=== PATIENT | male | born 1960 | race Caucasian/White ===

== ENCOUNTER 2018-03-28 07:29 | Observation (INO) | payer OTHER ==
[2018-03-28] VITALS (7 sets, daily range): BP systolic 119–128; BP diastolic 76–85; PULSE 60–87; RESP 16–20; TEMP 97.6–98; O2SAT 97–100
[~2018-03-28] VITALS: Ht 172.7 cm; Wt 75.0 kg
[~2018-03-28 07:29] MED LIST: OXYC-360 PO; PROC10TA4 PO; TAMS0.4C67 PO
[2018-03-28] MEDS ORDERED: ALPR.5 PO (07:40)
[2018-03-28] MEDS ORDERED: SODIUM CHLOR 0.9% 1000 ML INJ 1,000 ML IV ONE (07:45)
[2018-03-28] MEDS ORDERED: SODIUM CHLORIDE 0.9% FLUSH 10 ML FLUSH IVF PRN (07:45)
--- NOTE | 2018-03-28 08:06 | PD ---
HPI Chief Complaint: Chest Pain Time Seen by Provider: 07:35 Travel History International Travel<30 days: No Contact w/Intl Traveler<30days: No Traveled to known affect area: No History of Present Illness HPI 57-year-old man with a history of anxiety presents emerged from quitting of chest pain. He states that he started feeling unwell yesterday when he started perseverates that he has been under "a lot of stress and pressure". States this morning when he woke up he was still nauseous, felt dizzy and unwell, and then went to work. While at work he started getting crushing mid chest pain with left arm tingling. Denies ever having had similar symptoms. He does have a history of anxiety takes Xanax each morning. Denies ever having a chest pain with exam anxiety in the past. States he had a stress test in the remote past. Review of our records shows stress without definite ischemia back in 2011. No other medical problems. He otherwise had been feeling generally well and healthy. Patient called EMS, in route with EMS was given 4 mg morphine, 2 nitro, 4 baby aspirin. EMS reports she looked pale and diaphoretic on scene. History Past Medical History Narrative Medical Anxiety Tetanus Vaccination: > 5 Years Influenza Vaccination: No Social History Alcohol Use: Yes (RARELY) Tobacco Use: Yes (5 CIGARETTES DAILY) Allergies-Medications (Allergen,Severity, Reaction): Coded Allergies: No Known Allergies (Unverified Adverse Reaction, Unknown, 03/28/18) Reported Meds & Prescriptions Reported Meds & Active Scripts Active Reported Xanax (Alprazolam) 0.5 Mg Tab 0.5 Mg PO BID PRN Review of Systems Except as stated in HPI: all other systems reviewed are Neg Physical Exam Narrative GENERAL: Well-appearing 57-year-old man, little bit pale, in no acute distress. SKIN: Focused skin assessment a little bit clammy. No rash. HEAD: Atraumatic. Normocephalic. EYES: Pupils equal and round. No scleral icterus. No injection or drainage. ENT: No nasal bleeding or discharge. Mucous membranes pink and moist. NECK: Trachea midline. No JVD. CARDIOVASCULAR: Regular rate and rhythm. No murmur appreciated. RESPIRATORY: No accessory muscle use. Clear to auscultation. Breath sounds equal bilaterally. GASTROINTESTINAL: Abdomen soft, non-tender, nondistended. Hepatic and splenic margins not palpable. MUSCULOSKELETAL: No obvious deformities. No clubbing. No cyanosis. No edema. NEUROLOGICAL: Awake and alert. No obvious cranial nerve deficits. Motor grossly within normal limits. Normal speech. PSYCHIATRIC: Appropriate mood and affect; insight and judgment normal. Data Data Last Documented VS Vital Signs Date Time Temp Pulse Resp B/P (MAP) Pulse Ox O2 Delivery O2 Flow Rate FiO2 03/28/18 09:05 81 16 125/84 (98) 100 Nasal Cannula 2.00 03/28/18 07:30 98.0 Orders Orders Electrocardiogram (03/28/18 07:36) Complete Blood Count With Diff (03/28/18 07:36) Comprehensive Metabolic Panel (03/28/18 07:36) D-Dimer (03/28/18 07:36) Magnesium (Mg) (03/28/18 07:36) Prothrombin Time / Inr (Pt) (03/28/18 07:36) Act Partial Throm Time (Ptt) (03/28/18 07:36) Troponin I (03/28/18 07:36) Lipase (03/28/18 07:36) Ecg Monitoring (03/28/18 07:36) Iv Access Insert/Monitor (03/28/18 07:36) Oximetry (03/28/18 07:36) Oxygen Administration (03/28/18 07:36) Sodium Chloride 0.9% Flush (Ns Flush) (03/28/18 07:45) Chest, Pa & Lat (03/28/18 07:36) Sodium Chlor 0.9% 1000 Ml Inj (Ns 1000 M (03/28/18 07:45) Acetaminophen (Tylenol) (03/28/18 09:00) Labs Laboratory Tests Test 03/28/18 07:45 White Blood Count 6.7 TH/MM3 Red Blood Count 4.99 MIL/MM3 Hemoglobin 15.5 GM/DL Hematocrit 42.7 % Mean Corpuscular Volume 85.6 FL Mean Corpuscular Hemoglobin 31.0 PG Mean Corpuscular Hemoglobin Concent 36.2 % Red Cell Distribution Width 13.6 % Platelet Count 246 TH/MM3 Mean Platelet Volume 8.0 FL Neutrophils (%) (Auto) 68.2 % Lymphocytes (%) (Auto) 21.1 % Monocytes (%) (Auto) 7.8 % Eosinophils (%) (Auto) 2.1 % Basophils (%) (Auto) 0.8 % Neutrophils # (Auto) 4.6 TH/MM3 Lymphocytes # (Auto) 1.4 TH/MM3 Monocytes # (Auto) 0.5 TH/MM3 Eosinophils # (Auto) 0.1 TH/MM3 Basophils # (Auto) 0.1 TH/MM3 CBC Comment AUTO DIFF Differential Comment AUTO DIFF CONFIRMED Prothrombin Time 10.7 SEC Prothromb Time International Ratio 1.1 RATIO Activated Partial Thromboplast Time 26.2 SEC D-Dimer Quantitative (PE/DVT) LESS THAN 0.19 MG/L FEU Blood Urea Nitrogen 12 MG/DL Creatinine 0.89 MG/DL Random Glucose 123 MG/DL Total Protein 7.2 GM/DL Albumin 3.9 GM/DL Calcium Level 8.9 MG/DL Magnesium Level 2.2 MG/DL Alkaline Phosphatase 32 U/L Aspartate Amino Transf (AST/SGOT) 21 U/L Alanine Aminotransferase (ALT/SGPT) 37 U/L Total Bilirubin 0.7 MG/DL Sodium Level 140 MEQ/L Potassium Level 4.1 MEQ/L Chloride Level 106 MEQ/L Carbon Dioxide Level 25.1 MEQ/L Anion Gap 9 MEQ/L Estimat Glomerular Filtration Rate 89 ML/MIN Troponin I LESS THAN 0.02 NG/ML Lipase 148 U/L MDM Medical Decision Making Medical Screen Exam Complete: Yes Emergency Medical Condition: Yes Interpretation(s) My review of EKG: Normal sinus rhythm at a rate of 95, normal axis, normal intervals, no acute ischemia. LABS: CBC is unremarkable. CMP is unremarkable. Troponin negative. Lipase is normal. Coags unremarkable D-dimer negative Chest x-ray negative Differential Diagnosis Anxiety, ACS, PE, dissection, pancreatitis, gastritis, hepatobiliary disease, other Narrative Course Medical decision making 57-year-old man presents emergency department with nausea chest pain left arm tingling. Overall this seems like more likely to be anxiety the patient's 57 symptoms certainly could be suggestive of ACS. Initial EKG is normal. Other etiologies including PE and dissection seem less likely. Will check lipase. Will check d-dimer given some of the atypical symptoms. Likely chest pain center for observation. Diagnosis Primary Impression: Chest pain Admitting Information Admitting Physician Requests: Observation Nirmal Rojas MD March 28, 2018 08:06
[2018-03-28 08:12] LABS: AUTOMATED NEUTROPHIL # 4.6 TH/MM3 (1.8-7.7); BASOPHIL # 0.1 TH/MM3 (0-0.2); BASOPHIL % 0.8 % (0.0-2.0); EOSINOPHIL # 0.1 TH/MM3 (0-0.4); EOSINOPHIL % 2.1 % (0.0-4.0); HEMATOCRIT 42.7 % (39.0-51.0); HEMOGLOBIN 15.5 GM/DL (13.0-17.0); LYMPH % 21.1 % (9.0-44.0); LYMPHOCYTE # 1.4 TH/MM3 (1.0-4.8); MEAN CELL VOLUME 85.6 FL (80.0-100.0); MEAN CORPUSCULAR HGB CONC 36.2 % (32.0-36.0); MONO % 7.8 % (0.0-8.0); MONOCYTE # 0.5 TH/MM3 (0-0.9); NEUT % 68.2 % (16.0-70.0); PLATELET COUNT 246 TH/MM3 (150-450); RED BLOOD COUNT 4.99 MIL/MM3 (4.50-5.90); RED CELL DISTRIBUTION WIDTH 13.6 % (11.6-17.2); WHITE BLOOD COUNT 6.7 TH/MM3 (4.0-11.0)
--- NOTE | 2018-03-28 08:24 | RADRPT ---
EXAM DATE: 03/28/2018 8:15 AM EDT AGE/SEX: 57 years / Male INDICATIONS: Chest pain, short of breath, light headed since earlier this morning CLINICAL DATA: This is the patient's initial encounter. Patient reports that signs and symptoms have been present for 1 day and indicates a pain score of 8/10. MEDICAL/SURGICAL HISTORY: Renal calculi. hernia Tonsillectomy. Inguinal hernia repair. arthro scopy knee COMPARISON: [facility] – [place], CHEST SINGLE AP, 10/08/2012. . FINDINGS: PA and lateral views of the chest demonstrate the lungs to be symmetrically aerated without evidence of mass, infiltrate or effusion. The cardiomediastinal contours are unremarkable. Osseous structures are intact. CONCLUSION: No acute cardiopulmonary disease Electronically signed by: Brian Alonso MD 03/28/2018 8:23 AM EDT
[2018-03-28 08:34] LABS: ALBUMIN 3.9 GM/DL (3.4-5.0); ALT (GPT) 37 U/L (12-78); AST (GOT) 21 U/L (15-37); BICARBONATE 25.1 MEQ/L (21.0-32.0); BLOOD UREA NITROGEN 12 MG/DL (7-18); CALCIUM 8.9 MG/DL (8.5-10.1); CHLORIDE 106 MEQ/L (98-107); CREATININE 0.89 MG/DL (0.60-1.30); GLOMERULAR FILTRATION RATE 89 ML/MIN (>89); GLUCOSE,RANDOM 123 MG/DL (74-106); MAGNESIUM 2.2 MG/DL (1.5-2.5); SODIUM (NA) 140 MEQ/L (136-145)
[2018-03-28 08:38] LABS: D-DIMER LESS THAN 0.19 MG/L FEU (0.00-0.50); INTERNATIONAL NORMALIZED RATIO 1.1 RATIO; PROTHROMBIN TIME - PATIENT 10.7 SEC (9.8-11.6)
[2018-03-28 08:39] LABS: ALKALINE PHOSPHATASE 32 U/L (45-117); TOTAL BILIRUBIN ADULT 0.7 MG/DL (0.2-1.0); TOTAL PROTEIN 7.2 GM/DL (6.4-8.2); TROPONIN I LESS THAN 0.02 NG/ML (0.02-0.05)
[2018-03-28] MEDS ORDERED: ACETAMINOPHEN 500 MG CPLT PO ONE (09:00)
[2018-03-28] MEDS ORDERED: ACETAMINOPHEN 500 MG CPLT PO PRN (11:00)
[2018-03-28] MEDS ORDERED: KETOROLAC TROMETHAMINE 30 MG/ML (IVP) VIAL IVP ONE (11:00)
[2018-03-28] MEDS ORDERED: ACETAMINOPHEN/HYDROcodone 325 MG/7.5 MG TAB PO PRN (11:00)
[2018-03-28] MEDS ORDERED: LORazepam 2 MG/ML VIAL IV PUSH ONE (11:00)
--- NOTE | 2018-03-28 11:34 | HHI.HP ---
[facility] Primary Care Physician Mayito Cason M.D. Chief Complaint Chest pain History of Present Illness This is a 57-year-old male with history of tobacco abuse and anxiety that presents to ED via [facility] with complaint of developing a chest discomfort while he was at work. He states that about 6:30 in the morning. 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 The crushing type of discomfort lasted about 15 minutes but then turned into more of a achiness. He was nauseous, diaphoretic, and short of breath. He states [facility] gave him 2 sublingual nitroglycerin which did not improve the chest discomfort however it did create a headache. States he has had something like this in the past and had a stress test 2012 was nonischemic. States the area is now sore to touch. States he has been very anxious. He has been under a lot more stress over the last few months and is not sure that is causing the discomfort. Denies recent illness. Denies fevers or chills. Patient also states that he recently tore his left knee meniscus and is awaiting worker's comp follow-up for that. Review of Systems General: Patient denies fevers, chills, and recent travel. HEENT: Patient denies headache, sore throat, difficulty swallowing. Cardiovascular: Has the chest discomfort as mentioned above. Denies sensation of heart beating rapidly or irregularly. No syncope. He was diaphoretic. Respiratory: He was short of breath. Denies inspirational chest discomfort. Denies coughing wheezing or hemoptysis. GI: He was nauseous. Patient denies vomiting, diarrhea, abdominal pain, bloody stools. Musculoskeletal: Complains of left knee pain. Patient denies joint edema. Denies calf pain or edema. Neurovascular: Patient denies numbness, tingling, weakness in extremities. Denies headache. Endocrine: Denies polyuria and polydipsia. Hematologic: Denies easy bruising. Skin: Denies rash or itching. Past Family Social History Allergies: Coded Allergies: No Known Allergies (Unverified Allergy, Unknown, 03/28/18) Past Medical History Tobacco abuse. Anxiety. States he has a left knee torn meniscus. Denies hypertension, hyperlipidemia, diabetes, and known CAD. Past Surgical History Arthroscopy of left knee. Reported Medications Reported Meds & Active Scripts Active Reported Xanax (Alprazolam) 0.5 Mg Tab 0.5 Mg PO BID PRN Active Ordered Medications Current Medications Medications (Trade) Dose Ordered Sig/Fiorella Route Start Time Stop Time Status Last Admin (NS Flush) 2 ml UNSCH PRN IVF 03/28/18 07:45 (Tylenol) 500 mg Q4H PRN PO 03/28/18 11:00 (Bivins 7.5-325 Mg) 1 tab Q4H PRN PO 03/28/18 11:00 (Aspirin) 325 mg DAILY PO 03/29/18 09:00 (Duoneb Neb) 1 ampule Q4HR NEB PRN INH 03/28/18 11:30 UNV (Catapres) 0.1 mg Q4H PRN PO 03/28/18 11:30 UNV Family History Denies family history of CAD. Social History Continues to smoke cigarettes. He has been smoking one quarter pack of cigarettes daily for the past year. Prior that he smoked between three-quarter packs 1 pack a series daily for 30 years. Denies alcohol or illicit drug use. He works as a security operations center operator. Physical Exam Vital Signs Vital Signs Date Time Temp Pulse Resp B/P (MAP) Pulse Ox O2 Delivery O2 Flow Rate FiO2 03/28/18 11:00 60 16 128/76 (93) 98 Room Air 03/28/18 09:05 81 16 125/84 (98) 100 Nasal Cannula 2.00 03/28/18 07:40 87 18 122/78 (93) 98 Nasal Cannula 2.00 03/28/18 07:40 87 18 98 Nasal Cannula 2.00 03/28/18 07:40 98 Nasal Cannula 2.00 03/28/18 07:30 98.0 87 18 122/78 (93) 98 Physical Exam GENERAL: This is a well-nourished, well-developed patient, in no apparent distress. Patient speaks in clear complete sentences. Patient is pleasant. HEENT: Head is atraumatic and normocephalic. Neck is supple without lymphadenopathy and trachea is midline. No JVD or carotid bruits. CARDIOVASCULAR: Regular rate and rhythm without murmurs, gallops, or rubs. RESPIRATORY: Clear to auscultation. Breath sounds equal bilaterally. No wheezes , rales, or rhonchi. Chest wall is tender worsening the discomfort that he has had. No use of accessory muscles. GASTROINTESTINAL: Abdomen is nontender, nondistended. Abdomen soft. No obvious pulsatile mass or bruit. No CVA tenderness. Strong femoral pulses bilaterally. Normal bowel sounds in all quadrants. MUSCULOSKELETAL: Patient is moving upper and lower extremities freely however did not go through range of motion of his left knee with a stated history of recent torn meniscus. No calf tenderness or edema, no Homans sign. Strong pulses in upper and lower extremities. NEUROLOGICAL: Patient is alert and oriented. Cranial nerves 2-12 are grossly intact. No focal deficits and speech is clear. SKIN: No rash and turgor is normal. Laboratory Laboratory Tests Test 03/28/18 07:45 03/28/18 11:00 White Blood Count 6.7 Red Blood Count 4.99 Hemoglobin 15.5 Hematocrit 42.7 Mean Corpuscular Volume 85.6 Mean Corpuscular Hemoglobin 31.0 Mean Corpuscular Hemoglobin Concent 36.2 Red Cell Distribution Width 13.6 Platelet Count 246 Mean Platelet Volume 8.0 Neutrophils (%) (Auto) 68.2 Lymphocytes (%) (Auto) 21.1 Monocytes (%) (Auto) 7.8 Eosinophils (%) (Auto) 2.1 Basophils (%) (Auto) 0.8 Neutrophils # (Auto) 4.6 Lymphocytes # (Auto) 1.4 Monocytes # (Auto) 0.5 Eosinophils # (Auto) 0.1 Basophils # (Auto) 0.1 CBC Comment AUTO DIFF Differential Comment AUTO DIFF CONFIRMED Prothrombin Time 10.7 Prothromb Time International Ratio 1.1 Activated Partial Thromboplast Time 26.2 D-Dimer Quantitative (PE/DVT) LESS THAN 0.19 Blood Urea Nitrogen 12 Creatinine 0.89 Random Glucose 123 Total Protein 7.2 Albumin 3.9 Calcium Level 8.9 Magnesium Level 2.2 Alkaline Phosphatase 32 Aspartate Amino Transf (AST/SGOT) 21 Alanine Aminotransferase (ALT/SGPT) 37 Total Bilirubin 0.7 Sodium Level 140 Potassium Level 4.1 Chloride Level 106 Carbon Dioxide Level 25.1 Anion Gap 9 Estimat Glomerular Filtration Rate 89 Troponin I LESS THAN 0.02 Lipase 148 Result Diagram: 03/28/18 0730 03/28/18 0255 Imaging Last 48 hours Impressions Chest X-Ray 03/28/18 0797 Signed Impressions: CONCLUSION: No acute cardiopulmonary disease Course Initial EKG is sinus rhythm without significant ST segment depressions or elevations. Caprini VTE Risk Assessment Caprini VTE Risk Assessment: No/Low Risk (score <= 1) Caprini Risk Assessment Model Point Value = 1 Point Value = 2 Point Value = 3 Point Value = 5 Age 41-60 Minor surgery BMI > 25 kg/m2 Swollen legs Varicose veins or History of unexplained or recurrent spontaneous Oral contraceptives or hormone replacement Sepsis (< 1 month) Serious lung disease, including pneumonia (< 1 month) Abnormal pulmonary function Acute myocardial infarction Congestive heart failure (< 1 month) History of inflammatory bowel disease Medical patient at bed rest Age 61-74 Arthroscopic surgery Major open surgery (> 45 min) Laparoscopic surgery (> 45 min) Malignancy Confined to bed (> 72 hours) Immobilizing plaster cast Central venous access Age >= 75 History of VTE Family history of VTE Factor V Leiden Prothrombin 12171A Lupus anticoagulant Anticardiolipin antibodies Elevated serum homocysteine Heparin-induced thrombocytopenia Other congenital or acquired thrombophilia Stroke (< 1 month) Elective arthroplasty Hip, pelvis, or leg fracture Acute spinal cord injury (< 1 month) Prophylaxis Regimen Total Risk Factor Score Risk Level Prophylaxis Regimen 0-1 Low Early ambulation 2 Moderate Order ONE of the following: *Sequential Compression Device (SCD) *Heparin 5000 units SQ BID 3-4 Higher Order ONE of the following medications: *Heparin 5000 units SQ TID *Enoxaparin/Lovenox 40 mg SQ daily (WT < 150 kg, CrCl > 30 mL/min) *Enoxaparin/Lovenox 30 mg SQ daily (WT < 150 kg, CrCl > 10-29 mL/min) *Enoxaparin/Lovenox 30 mg SQ BID (WT < 150 kg, CrCl > 30 mL/min) AND/OR *Sequential Compression Device (SCD) 5 or more Highest Order ONE of the following medications: *Heparin 5000 units SQ TID (Preferred with Epidurals) *Enoxaparin/Lovenox 40 mg SQ daily (WT < 150 kg, CrCl > 30 mL/min) *Enoxaparin/Lovenox 30 mg SQ daily (WT < 150 kg, CrCl > 10-29 mL/min) *Enoxaparin/Lovenox 30 mg SQ BID (WT < 150 kg, CrCl > 30 mL/min) AND *Sequential Compression Device (SCD) Assessment and Plan Assessment and Plan * Chest pain: Patient will continue to have serial cardiac enzymes and EKGs for ruling out purposes. Patient will be seen by Dr. Melendez of cardiology in the chest pain center. Patient will likely have a Lexiscan as he would not be able go on the treadmill with his stated history of left knee torn meniscus. Patient will be discharged home if stress test is nonischemic with instructions to follow-up with PCP. Return to ED for interval issues. States he was pretty anxious. Was given a dose of Ativan while he was still in the ED and also a dose of Toradol has been ordered. * Anxiety: She was given a dose of Ativan while he was in the ED. He should resume his medication at discharge. * Tobacco abuse: Patient has been counseled on the importance of smoking cessation. Patient is stable at this time. He is agreeable to this plan. Dion Peng March 28, 2018 11:34
[2018-03-28 11:51] LABS: TROPONIN I LESS THAN 0.02 NG/ML (0.02-0.05)
[2018-03-28] MEDS ORDERED: cloNIDine HCL 0.1 MG TAB PO PRN (12:00)
[2018-03-28] MEDS ORDERED: RESP: ALBUTEROL 2.5 MG/IPRATROPIUM 0.5 MG NEB (PRN) INH (12:00)
--- NOTE | 2018-03-28 14:13 | EKG ---
Date Performed: 03/28/2018 Time Performed: 07:30:22 PTAGE: 57 years EKG: Sinus rhythm NORMAL ECG PREVIOUS TRACING 10/08/12 Since the previous tracing, no significant change noted DOCTOR: Raffi Arredondo Interpretating Date/Time 03/31/2018 07:44:00
[2018-03-28 15:11] LABS: TROPONIN I LESS THAN 0.02 NG/ML (0.02-0.05)
[2018-03-28] MEDS ORDERED: REGADENOSON INJ 0.4 MG/5 ML SYR ONE (16:15)
--- NOTE | 2018-03-28 16:53 | EKG ---
Date Performed: 03/28/2018 Time Performed: 11:00:47 PTAGE: 57 years EKG: Sinus rhythm NORMAL ECG Since PREVIOUS TRACING , no significant change noted PREVIOUS TRACIN03/28/2018 07.30 DOCTOR: Amirah Melendez Interpretating Date/Time 03/31/2018 07:44:09
--- NOTE | 2018-03-28 17:26 | HHI.DCPOC ---
Discharge Care Plan Diagnosis: (1) Chest pain Goals to Promote Your Health * To prevent worsening of your condition and complications * To maintain your health at the optimal level Directions to Meet Your Goals Take your medications as prescribed Follow your dietary instruction Follow activity as directed Keep your appointments as scheduled Take your immunizations and boosters as scheduled If your symptoms worsen call your PCP, if no PCP go to Urgent Care Center or Emergency Room Smoking is Dangerous to Your Health. Avoid second hand smoke Call the 24-hour hour crisis hotline for domestic abuse at Dion Peng March 28, 2018 17:26
--- NOTE | 2018-03-28 18:10 | RADRPT ---
EXAM DATE: 03/28/2018 5:13 PM EDT AGE/SEX: 57 years / Male INDICATIONS:Angina. . Mid chest pain with shortness of breath for one day. CLINICAL DATA: This is the patient's initial encounter. Patient reports that signs and symptoms have been present for 1 day and indicates a pain score of 7/10. MEDICAL/SURGICAL HISTORY: Non-responsive. None. Non-responsive. None. COMPARISON: No prior [place] exams available for comparison. No external comparison. DOSE: 8.7 mCi Tc 99m Myoview at rest 25.5 mCi [id number] at stress 0.4 mg Lexiscan STRESS SYMPTOMS: Short of breath and dizzy. EJECTION FRACTION: 63 % TECHNIQUE: The patient underwent pharmacologic stress with infusion of prescribed dose. Continuous ECG tracing was monitored during stress. Gated SPECT imaging was performed after stress and conventi onal SPECT imaging was performed at rest. The examination was performed on a SPECT/CT scanner, both attenuation and non-corrected datasets were reviewed. FINDINGS: Distribution: The maximum perfused segment at stress is in the inferior wall. Perfusion Study: The pattern of perfusion at stress is within normal limits. Gated Study: There are intact wall motion and wall thickening without hypokinetic or dyskinetic segm ents. The ejection fraction is calculated at 63%. RISK CATEGORY: Low (<1% Annual Motality Rate) CONCLUSION: 1. Unremarkable myocardial perfusion exam. Electronically signed by: Chris Blanco MD 03/28/2018 6:09 PM EDT
--- NOTE | 2018-03-29 07:17 | TR ---
Date Performed: 03/28/2018 Time Performed: 16:21:05 DOCTOR: Amirha Melendez DRUG LIST: CLINICAL HISTORY: ANGINA REASON FOR TEST: Angina REASON FOR ENDING: OBSERVATION: CONCLUSION: Lexiscan stress test was performed under standard four minute protocol. Radionuclid e was injected one minute prior to ending the test. No electrocardiographic abormalities were present to suggest ischemia. Nuclear imaging and interpretation are pending. COMMENTS: no ischemia
--- NOTE | 2018-03-29 07:17 | EKG ---
Date Performed: 03/28/2018 Time Performed: 14:13:13 PTAGE: 57 years EKG: SINUS BRADYCARDIA WITH SINUS ARRHYTHMIA BORDERLINE ECG Since PREVIOUS TRACING , no significant change noted PREVIOUS TRACIN03/28/2018 11.00 DOCTOR: Amirah Melendez Interpretating Date/Time 03/31/2018 07:44:18
[2018-03-29] MEDS ORDERED: ASPIRIN 325 MG TAB PO SCH (09:00)
== END 2018-03-28 18:31 | disposition home or self-care (01) ==
LOC: NEPC 07:29 → NEDA 09:18 → NEPFCDU 12:03
PROVIDERS: ADMIT Internal Medicine Interventional Cardiology; ATTEND Internal Medicine Interventional Cardiology
DX: R07.89 Other chest pain (principal); F41.9 Anxiety disorder, unspecified; R06.02 Shortness of breath; R11.0 Nausea; R61 Generalized hyperhidrosis; R51 Headache; R00.1 Bradycardia, unspecified; R20.2 Paresthesia of skin; F17.210 Nicotine dependence, cigarettes, uncomplicated
CPT/HCPCS: 71046; 78452; 80053; 82550; 83690; 83735; 84484; 85025; 85379; 85610; 85730; 93005; 93017; 96361; 96374; 96375; 99285; A9502; G0378; J1885; J2060; J2785; J7030